=== PATIENT | male | born 1950 | race Caucasian/White ===

== ENCOUNTER → 2018-08-16 | Outpatient (CLI) | payer OTHER ==
[~2018-08-16] VITALS: Ht 182.9 cm; Wt 90.3 kg
[~2018-08-16] MED LIST: ASPIR 8181 MG PO; LIPITOR10 MG PO; LISINOPRIL10 MG PO; MELATONIN3 M1 PO; ZINC50 M1 PO
--- NOTE | ~2018-08-16 | P ---
[facility] [place] [address] PROCEDURE REPORT Name: TONNY JENSEN Room #: REG [facility].#: [id number] Admission: 08/16/18 Attend Phys: Js Red MD Discharge: Date of : 48 Report #: [id number] THIS REPORT FOR: //name// CC: JS Red DATE OF SERVICE: 08/16/2018 BRIEF HISTORY: The patient is a 68-year-old male for high risk screening colonoscopy due to prior history of colon polyps. PREOPERATIVE DIAGNOSIS: High risk screening colonoscopy. POSTOPERATIVE DIAGNOSIS: Multiple colon polyps. MEDICATIONS: Deep sedation with propofol per anesthesia. SPECIMENS: 1. Hepatic flexure polyps x 2. 2. Polyps at 70 cm x 3 cm. 3. Polyp at 50 cm. 4. Rectal polyp. ESTIMATED BLOOD LOSS: 3 mL PROCEDURE: Colonoscopy to cecum and terminal ileum with snare polypectomy and biopsy. FINDINGS: Prior to propofol sedation, procedure of colonoscopy was discussed with the patient as well as potential risks and its complications. He indicates he understands and desires to proceed. DESCRIPTION OF PROCEDURE: With the patient in left lateral decubitus position, digital examination was completed, which revealed no abnormalities. Subsequently, the Olympus video colonoscope was introduced in the rectum, advanced under direct vision to the cecum. Done with minimal difficulty. The cecum was identified by the ileocecal valve and the appendiceal orifice. I was able to visualize the distal segment of the terminal ileum, which was inspected and noted to be unremarkable. At that point, the scope was withdrawn and careful circumferential views obtained. Upon slow withdrawal of the scope, the prep was excellent. The mucosa was within normal limits, normal vascular pattern, normal light reflex. As we withdrew the scope, he was found to have 2 diminutive polyps at the hepatic flexure, which were removed with biopsy forceps. Scope was further withdrawn and total of 3 diminutive polyps were identified at 70 cm and removed with biopsy forceps. Another polyp was [facility] [address] [place] [address] PROCEDURE REPORT Name: CAMILATONNY [id number] Admission: 08/16/18 Attend Phys: Js Red MD Discharge: Date of : 48 Report #: [id number] identified at 50 cm. It was about 5-6 mm, removed by cold snare polypectomy. Upon further withdrawal of the scope, no additional polyps were seen until the rectum was reached. In the rectum, a diminutive polyp was seen and removed by biopsy. Scope withdrawn in the distal rectum and no abnormalities were seen. Upon retroflexion, no abnormalities were seen. Scope was withdrawn. The patient tolerated the procedure well. CONDITION OF THE PATIENT UPON DISCHARGE: Following the procedure, the patient was drowsy, arousable, conversant and will be discharged home when fully ambulatory. INSTRUCTIONS TO THE PATIENT AND FAMILY AT THE TIME OF DISCHARGE: The patient with history of colon polyps. Polyps identified and removed as described above. We will follow up on the path and make followup recommendation. If 3 or more or adenomas, he should return in 3 years. If only 1 or 2 adenomas, then 5 years would be indicated. If none are adenomas, then 10 years would be indicated. He will return to care of Dr. Js Raza and return to see me as needed. <ELECTRONICALLY SIGNED> By: Js Red MD 08/17/18 1122 1111 [id number] Js Red MD /nt
--- NOTE | ~2018-08-16 | PATH ---
[facility] [place] [address] PATHOLOGY RPT PROCEDURE Name: SERGIO JENSEN Room #: REG JASON Marquez.#: [id number] Admission: 08/16/18 Date of : 48 Discharge: Report #: [id number] Path Case #: [id number] [facility] Accession Number: [id number] . 01 Material submitted: . PART A: POLYP AT HEPATIC FLEXURE X2 PART B: POLYP AT 70CM X3 PART C: POLYP AT 50CM PART D: POLYP AT RECTUM . 01 Clinical history: . Pre-OP DX: Screening Post-OP DX: Colon polyps . 02 Diagnosis: A. "Polyp at hepatic flexure X2", biopsy: - Hyperplastic polyp. . B. "Polyp at 70 cm X3", biopsy: - Tubular adenoma; no high-grade dysplasia. . C. "Polyp at 50 cm", biopsy: - Tubular adenoma, no high-grade dysplasia. . D. "Polyp at rectum", biopsy: - Hyperplastic polyp. (CLW:pit 08/17/2018) QTP/08/17/2018 . 02 Electronically signed: . Carla Alexander MD, Pathologist NPI- [id number] . 01 Gross description: . A. Received in formalin labeled "Sergio Jensen, polyp at hepatic flexure x2," are 2 segments of johnson soft tissue measuring 0.7 x 0.3 x 0.3 cm in aggregate dimensions and ranging from 0.3 to 0.4 cm in maximum dimension. The specimen is submitted entirely in cassette A1. . B. Received in formalin labeled "Sergio Jensen, polyp at 70 cm x3," are multiple segments of johnosn soft tissue measuring 1.3 x 0.6 x 0.2 cm in aggregate dimensions. The specimen is filtered and entirely submitted in cassette B1. . C. Received in formalin labeled "Sergio Jensen, polyp at 50 cm," are 2 segments of johnson soft tissue measuring 0.8 x 0.3 x 0.3 cm in aggregate dimensions and ranging from 0.3 to 0.5 cm in maximum dimension. The [address] [address] PATHOLOGY RPT PROCEDURE Name: SERGIO JENSEN Room #: REG CLMel Shi#: [id number] Admission: 08/16/18 Date of : 48 Discharge: Report #: [id number] Path Case #: [id number] specimen is submitted entirely in cassette C1. . D. Received in formalin labeled "Velasquez, Sergio, polyp at rectum," is a single segment of johnson soft tissue measuring 0.4 cm in maximum dimension. The specimen is entirely submitted in cassette D1. (TSD; 08/16/2018) TOB/TOB . 02 Pathologist provided ICD-10: D12.6, K62.1, K63.5 . 02 CPT . 186053, 820757, 562471, 929192 Specimen Comment: A courtesy copy of this report has been sent to Specimen Comment: [phone], . Specimen Comment: Report sent to / DR PADRON Performed at: [address], [place] [id number] MD Cody Raphael MD Phone: [phone] Performed at: [address] [id number] MD Mitra Lopez MD Phone: [phone]
== END | disposition home or self-care (01) ==
LOC: GI 08:55
DX: Z12.11 Encounter for screening for malignant neoplasm of colon (principal); Z86.010 Personal history of colon polyps; K63.5 Polyp of colon; D12.4 Benign neoplasm of descending colon; D12.5 Benign neoplasm of sigmoid colon; K62.1 Rectal polyp; I10 Essential (primary) hypertension; F17.210 Nicotine dependence, cigarettes, uncomplicated; Z90.49 Acquired absence of other specified parts of digestive tract; Z98.890 Other specified postprocedural states; Z79.82 Long term (current) use of aspirin; Z79.899 Other long term (current) drug therapy
CPT/HCPCS: 62110; 62900